=== PATIENT | male | born 1940 | race Caucasian/White ===

== ENCOUNTER 2017-06-28 11:58 | Outpatient (CLI) | payer MEDICARE ==
[2017-06-28 12:36] LABS: BASOPHILS # (AUTO) 0.1 10^3/uL (0.0-0.1); BASOPHILS % (AUTO) 0.9 %; EOSINOPHILS # (AUTO) 0.3 10^3/uL (0.0-0.7); EOSINOPHILS % (AUTO) 3.8 %; HGB - HEMOGLOBIN 15.2 g/dL (14.0-18.0); LYMPHOCYTES # (AUTO) 2.1 10^3/uL (1.5-3.5); LYMPHOCYTES % (AUTO) 26.2 %; MEAN CORPUSCULAR HEMOGLOBIN 31.8 pg (27.0-31.0); MEAN CORPUSCULAR HGB CONC 33.8 g/dL (32.0-36.0); MEAN CORPUSCULAR VOLUME 94.1 fL (80.0-94.0); MEAN PLATELET VOLUME 8.9 fL (7.4-11.4); MONOCYTES # (AUTO) 0.8 10^3/uL (0.0-1.0); MONOCYTES % (AUTO) 10.2 %; NEUTROPHILS # (AUTO) 4.7 10^3/uL (1.5-6.6); NEUTROPHILS % (AUTO) 58.9 %; PLT - PLATELET COUNT 183 10^3/uL (130-450); RED BLOOD COUNT 4.78 10^6/uL (4.70-6.10); RED CELL DISTRIBUTION WIDTH 13.4 % (12.0-15.0)
== END 2017-06-28 11:59 | disposition home or self-care (01) ==
LOC: LAB 11:58
PROVIDERS: ATTEND Ophthalmology
DX: G45.3 Amaurosis fugax (principal); I10 Essential (primary) hypertension
CPT/HCPCS: 36415; 85025; 85651; 86140

== ENCOUNTER 2017-07-05 14:13 | Outpatient (CLI) | payer MEDICARE, OTHER ==
[2017-07-05 14:53] LABS: BASOPHILS # (AUTO) 0.1 10^3/uL (0.0-0.1); BASOPHILS % (AUTO) 0.7 %; EOSINOPHILS # (AUTO) 0.2 10^3/uL (0.0-0.7); EOSINOPHILS % (AUTO) 1.9 %; HGB - HEMOGLOBIN 15.6 g/dL (14.0-18.0); LYMPHOCYTES # (AUTO) 2.3 10^3/uL (1.5-3.5); LYMPHOCYTES % (AUTO) 22.7 %; MEAN CORPUSCULAR HEMOGLOBIN 31.8 pg (27.0-31.0); MEAN CORPUSCULAR HGB CONC 34.1 g/dL (32.0-36.0); MEAN CORPUSCULAR VOLUME 93.2 fL (80.0-94.0); MONOCYTES # (AUTO) 0.9 10^3/uL (0.0-1.0); MONOCYTES % (AUTO) 9.2 %; NEUTROPHILS # (AUTO) 6.6 10^3/uL (1.5-6.6); NEUTROPHILS % (AUTO) 65.5 %; PLT - PLATELET COUNT 201 10^3/uL (130-450); RED BLOOD COUNT 4.93 10^6/uL (4.70-6.10); RED CELL DISTRIBUTION WIDTH 13.3 % (12.0-15.0); WHITE BLOOD COUNT 10.1 x10^3/uL (4.8-10.8)
[2017-07-05 15:10] LABS: CHOLESTEROL 161 mg/dL; HDL CHOLESTEROL 27 mg/dL; LDL CHOLESTEROL,CALCULATED 113 mg/dL; LDL/HDL RATIO 4.2 (<3.6); VLDL CHOLESTEROL 21 mg/dL
[2017-07-06 12:15] LABS: ALBUMIN 4.4 g/dL (3.2-5.5); ALBUMIN/GLOBULIN RATIO 1.3 (1.0-2.2); ALKALINE PHOSPHATASE 66 IU/L (42-121); ALT ALANINE AMINOTRANSFERASE 21 IU/L (10-60); AST ASPARTATE AMINOTRANSFERASE 27 IU/L (10-42); BUN - BLOOD UREA NITROGEN 15 mg/dL (6-20); CALCIUM 9.4 mg/dL (8.5-10.3); CARBON DIOXIDE - CO2 24 mmol/L (21-32); CHLORIDE 107 mmol/L (101-111); GFR - MDRD 72 (>89); GLUCOSE 96 mg/dL (70-100); SODIUM 137 mmol/L (135-145); TOTAL PROTEIN 7.8 g/dL (6.7-8.2)
[2017-07-06 13:16] LABS: HEPATITIS C ANTIBODY REACTIVE (NON-REACTIVE)
[2017-07-11 16:37] LABS: HCV RNA QNT 3.18 Log IU/mL (NOT DETECTED); HCV RNA QUANT RT PCR 1510 IU/mL (NOT DETECTED)
== END 2017-07-05 14:14 | disposition home or self-care (01) ==
LOC: LAB 14:13
PROVIDERS: ATTEND Internal Medicine
DX: G45.3 Amaurosis fugax (principal); R53.83 Other fatigue; M25.50 Pain in unspecified joint; B19.20 Unspecified viral hepatitis C without hepatic coma
CPT/HCPCS: 36415; 80053; 80061; 83721; 84443; 85025; 86803; 87522

== ENCOUNTER 2017-07-07 12:52 | Outpatient (CLI) | payer MEDICARE, OTHER ==
--- NOTE | 2017-07-07 15:35 | CT Report ---
EXAM: CT HEAD EXAM DATE: 07/07/2017 01:13 PM. CLINICAL HISTORY: TIA,HTN. COMPARISON: None. TECHNIQUE: Multiaxial CT images were obtained from the foramen magnum to the vertex. Reformats: Coron al. IV contrast: None. In accordance with CT protocol optimization, one or more of the following dose reduction techniques w ere utilized for this exam: automated exposure control, adjustment of mA and/or KV based on patient s ize, or use of iterative reconstructive technique. FINDINGS: Parenchyma: No intraparenchymal hemorrhage. No evidence of mass, midline shift, or CT findings of inf arction. Gu-white differentiation is distinct. Minimal periventricular hypoattenuation seen. 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 Extraaxial Spaces: Mild atrophy present. No subdural or epidural collections identified. Ventricles: Normal in size and position. Sinuses and Orbits: Mild mucosal thickening involving ethmoid sinuses to suggest chronic sinusitis. Bones: No evidence of fracture or calvarial defect. Other: None. IMPRESSION: 1. Mild senescent changes without CT evidence of acute intracranial disease. Old lacunar infarct invo lving posterior limb of the right internal capsule. 2. Mild chronic ethmoid sinusitis. [facility] Referring Provider Line: [phone] SITE ID: [id number]
== END 2017-07-07 12:53 | disposition home or self-care (01) ==
LOC: DI 12:52
PROVIDERS: ATTEND Internal Medicine
DX: G45.9 Transient cerebral ischemic attack, unspecified (principal); I10 Essential (primary) hypertension
CPT/HCPCS: 70450; 93306

== ENCOUNTER 2017-07-07 13:03 | Outpatient (CLI) | payer MEDICARE | END 2017-07-07 13:04 | disposition home or self-care (01) | LOC: DI 13:03 | PROVIDERS: ATTEND Ophthalmology | DX: Z53.9 Procedure and treatment not carried out, unspecified reason (principal); G45.3 Amaurosis fugax; H53.139 Sudden visual loss, unspecified eye ==

== ENCOUNTER 2017-08-06 14:18 | Outpatient (CLI) | payer MEDICARE ==
--- NOTE | 2017-08-07 11:37 | Ultrasound Report ---
CAROTID DUPLEX: 08/06/2017 CLINICAL INDICATION: TIA. TECHNIQUE: Real-time sonographic vascular imaging was performed by the hand spray operator through the carotid arteries utilizing both color-flow and Doppler spectral analysis. Multiple advertising account representative static images were saved for review. RIGHT Vessel PSV cm/sec EDV cm/sec ICA/CCA RSV Ratio Degree of Stenosis Plaque Estimate % RCCA Prox 72 -- -- RCCA Dist 66 1.0 -- RECA 93 -- -- RT BULB 103 7 1.5 trickle RAHEEM Prox 68 15 1.0 trickle RAHEEM Mid 48 7 0.72 trickle RAHEEM Dist 80 4 1.2 trickle RVA 86 -- -- RVA flow direction: Antegrade LEFT Vessel PSV cm/sec EDV cm/sec ICA/CCA RSV Ratio Degree of Stenosis Plaque Estimate % LCCA Prox 96 -- LCCA Dist 98 21 LECA 100 -- LFT BULB 125 16 turbulent LICA Prox 96 19 0.97 LICA Mid 84 23 0.85 LICA Dist 67 19 0.68 LVA 47 -- -- LVA flow direction: Antegrade Velocity criteria are extrapolated from diameter data as defined by the Society of Radiologists in Ultrasound Consensus Conference Radiology 2003; 229; 340-346. Degree of Stenosis % ICA PSV cm/sec ICA EDV cm/sec ICA/CCA PSV Ratio Plaque Estimate % Normal < 125 < 40 < 2.0 None <50 < 125 < 40 < 2.0 < 50 50-69 125-130 40-100 2.0-4.0 >/=50 >/=70 but less than near occlusion > 230 > 100 > 4.0 >/=50 Near occlusion High, low or undetectable Variable Variable Visible Total occlusion Undetectable Not applicable Not applicable No detectable lumen FINDINGS RIGHT: There is minimal flow in the right internal carotid artery, due to heterogeneous plaquing. LEFT: There is mild plaquing, without evidence of a focal hemodynamically significant carotid stenosis. The vertebral arteries demonstrate antegrade flow bilaterally. 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 CRITICAL RESULT: Results called to Dr. Thomas's office on 08/06/2017 at 3: 25 p.m. TD: 08/06/2017 15:36 yoan VIRK
== END 2017-08-06 14:19 | disposition home or self-care (01) ==
LOC: DI 14:18
PROVIDERS: ATTEND Internal Medicine
DX: I65.21 Occlusion and stenosis of right carotid artery (principal)
CPT/HCPCS: 93880

== ENCOUNTER 2018-07-05 08:07 | Outpatient (CLI) | payer MEDICARE ==
[2018-07-05 09:00] LABS: BASOPHILS # (AUTO) 0.1 10^3/uL (0.0-0.1); BASOPHILS % (AUTO) 0.7 %; EOSINOPHILS # (AUTO) 0.4 10^3/uL (0.0-0.7); EOSINOPHILS % (AUTO) 4.2 %; HGB - HEMOGLOBIN 14.9 g/dL (14.0-18.0); LYMPHOCYTES % (AUTO) 21.9 %; MEAN CORPUSCULAR HEMOGLOBIN 31.2 pg (27.0-31.0); MEAN CORPUSCULAR HGB CONC 32.9 g/dL (32.0-36.0); MEAN CORPUSCULAR VOLUME 94.9 fL (80.0-94.0); MEAN PLATELET VOLUME 9.2 fL (7.4-11.4); MONOCYTES # (AUTO) 0.9 10^3/uL (0.0-1.0); MONOCYTES % (AUTO) 9.5 %; NEUTROPHILS # (AUTO) 5.9 10^3/uL (1.5-6.6); NEUTROPHILS % (AUTO) 63.7 %; PLT - PLATELET COUNT 192 10^3/uL (130-450); RED BLOOD COUNT 4.77 10^6/uL (4.70-6.10); RED CELL DISTRIBUTION WIDTH 13.2 % (12.0-15.0); WHITE BLOOD COUNT 9.3 x10^3/uL (4.8-10.8)
[2018-07-05 09:18] LABS: ALBUMIN/GLOBULIN RATIO 1.1 (1.0-2.2); ALKALINE PHOSPHATASE 70 IU/L (42-121); ALT ALANINE AMINOTRANSFERASE 18 IU/L (10-60); AST ASPARTATE AMINOTRANSFERASE 26 IU/L (10-42); BILIRUBIN,TOTAL 1.4 mg/dL (0.2-1.0); BUN - BLOOD UREA NITROGEN 14 mg/dL (6-20); CARBON DIOXIDE - CO2 23 mmol/L (21-32); CHLORIDE 107 mmol/L (101-111); CHOL/HDL RATIO 5.9 (<5.0); CHOLESTEROL 170 mg/dL; GFR - MDRD 72 (>89); GLUCOSE 103 mg/dL (70-100); HDL CHOLESTEROL 29 mg/dL; LDL CHOLESTEROL,CALCULATED 126 mg/dL; LDL/HDL RATIO 4.3 (<3.6); SODIUM 139 mmol/L (135-145); TOTAL PROTEIN 7.5 g/dL (6.7-8.2); VLDL CHOLESTEROL 15 mg/dL
[2018-07-05 09:31] LABS: THYROID STIMULATING HORMONE 2.55 uIU/mL (0.34-5.60)
[2018-07-06 08:02] LABS: HEPATITIS C ANTIBODY REACTIVE (NON-REACTIVE)
[2018-07-10 16:06] LABS: HCV RNA QNT 3.97 Log IU/mL (NOT DETECTED); HCV RNA QUANT RT PCR 9280 IU/mL (NOT DETECTED)
== END 2018-07-05 08:08 | disposition home or self-care (01) ==
LOC: LAB 08:07
PROVIDERS: ATTEND Internal Medicine
DX: R51 Headache (principal); G45.3 Amaurosis fugax; R20.0 Anesthesia of skin; B18.2 Chronic viral hepatitis C; Z12.5 Encounter for screening for malignant neoplasm of prostate; Z13.6 Encounter for screening for cardiovascular disorders
CPT/HCPCS: 36415; 80061; 81599; 82607; 86803; 87521; G0103; 80053; 83721; 84153; 84443; 85025

== ENCOUNTER 2018-07-26 15:02 | Outpatient (CLI) | payer MEDICARE | END 2018-07-26 15:03 | disposition home or self-care (01) | LOC: LAB 15:02 | PROVIDERS: ATTEND Optometrist Corneal and Contact Management | DX: H47.011 Ischemic optic neuropathy, right eye (principal) | CPT/HCPCS: 36415; 85651; 86140 ==

== ENCOUNTER 2018-09-25 12:37 | Outpatient (CLI) | payer MEDICARE ==
--- NOTE | 2018-09-27 05:09 | Ultrasound Report ---
Reason: CHRONIC HEP C Procedure Date: 09/25/2018 Accession Number: [id number] / [id number] Procedure: US - Abdomen Limited CPT Code: FULL RESULT: EXAM: ABDOMEN LIMITED EXAM DATE: 09/25/2018 01:45 PM INDICATION: CHRONIC HEP C. COMPARISONS: None. FINDINGS: Liver: Liver parenchyma is heterogeneous and mild to moderately hyperechoic. No discrete liver masses or intrahepatic bile duct dilation. However, evaluation for masses is limited secondary to the echogenicity. Right liver measures 11.7 cm. Main portal vein flow: Hepatopetal. Gallbladder: Normal. No stones, wall thickening, or sonographic Edmond's sign. Biliary System: CBD measures 3.8 mm. No intrahepatic or extrahepatic ductal dilatation. Pancreas: Normal. Right kidney: 10.9 cm. No hydronephrosis. Abdominal aorta and IVC: Normal. Other: None. IMPRESSION: 1. Mild to moderately heterogeneous hyperechoic liver parenchyma. No mass or intrahepatic bile duct dilation. Findings are nonspecific but probably secondary to diffuse parenchymal process such as hepatitis and/or fatty infiltration. No evidence of cirrhosis. 2. Normal gallbladder and common bile duct. [facility]
== END 2018-09-25 12:38 | disposition home or self-care (01) ==
LOC: DI 12:37
PROVIDERS: ATTEND Internal Medicine Gastroenterology
DX: B18.2 Chronic viral hepatitis C (principal)
CPT/HCPCS: 76705

== ENCOUNTER 2021-09-13 08:00 | Outpatient (CLI) | payer MEDICARE ==
[2021-09-13 16:20] LABS: BASOPHILS % (AUTO) 0.4 %; EOSINOPHILS # (AUTO) 0.3 10^3/uL (0.0-0.7); HCT - HEMATOCRIT 48.5 % (42.0-52.0); HGB - HEMOGLOBIN 16.3 g/dL (14.0-18.0); LYMPHOCYTES # (AUTO) 1.6 10^3/uL (1.5-3.5); LYMPHOCYTES % (AUTO) 18.1 %; MEAN CORPUSCULAR HEMOGLOBIN 31.3 pg (27.0-31.0); MEAN CORPUSCULAR HGB CONC 33.6 g/dL (32.0-36.0); MEAN CORPUSCULAR VOLUME 93.1 fL (80.0-94.0); MEAN PLATELET VOLUME 11.3 fL (7.4-11.4); MONOCYTES # (AUTO) 1.1 10^3/uL (0.0-1.0); MONOCYTES % (AUTO) 12.7 %; NEUTROPHILS # (AUTO) 5.8 10^3/uL (1.5-6.6); NEUTROPHILS % (AUTO) 65.1 %; PLT - PLATELET COUNT 190 10^3/uL (130-450); RED BLOOD COUNT 5.21 10^6/uL (4.70-6.10); RED CELL DISTRIBUTION WIDTH 13.2 % (12.0-15.0); WHITE BLOOD COUNT 8.9 x10^3/uL (4.8-10.8)
[2021-09-13 16:27] LABS: ALBUMIN 4.2 g/dL (3.2-5.5); ALBUMIN/GLOBULIN RATIO 1.2 (1.0-2.2); ALKALINE PHOSPHATASE 75 IU/L (42-121); ALT ALANINE AMINOTRANSFERASE 16 IU/L (10-60); AST ASPARTATE AMINOTRANSFERASE 23 IU/L (10-42); BILIRUBIN,TOTAL 0.7 mg/dL (0.2-1.0); BUN - BLOOD UREA NITROGEN 14 mg/dL (6-20); CALCIUM 9.7 mg/dL (8.5-10.3); CARBON DIOXIDE - CO2 24 mmol/L (21-32); CHLORIDE 109 mmol/L (101-111); CHOL/HDL RATIO 4.9 (<5.0); CHOLESTEROL 161 mg/dL; GFR - MDRD 72 (>89); GLUCOSE 109 mg/dL (70-100); HDL CHOLESTEROL 33 mg/dL; LDL CHOLESTEROL,CALCULATED 115 mg/dL; LDL/HDL RATIO 3.5 (<3.6); POTASSIUM 4.2 mmol/L (3.5-5.0); SODIUM 140 mmol/L (135-145); TOTAL PROTEIN 7.7 g/dL (6.7-8.2); TRIGLYCERIDES 66 mg/dL; VLDL CHOLESTEROL 13 mg/dL
[2021-09-13 16:29] LABS: PSA TOTAL 3.327 ng/mL (0.000-2.000)
[2021-09-13 17:21] LABS: PSA FREE 0.626 ng/mL (0.16-2.81)
[2021-09-13 21:12] LABS: ESTIMATED AVERAGE GLUCOSE 108 mg/dL (70-100); HEMOGLOBIN A1c% 5.4 % (4.27-6.07)
== END 2021-09-13 23:59 | disposition home or self-care (01) ==
LOC: LAB.R 08:00
PROVIDERS: ATTEND Internal Medicine
DX: Z00.00 Encounter for general adult medical examination without abnormal findings (principal); G45.3 Amaurosis fugax; B18.2 Chronic viral hepatitis C; R03.0 Elevated blood-pressure reading, without diagnosis of hypertension; R97.20 Elevated prostate specific antigen [PSA]; R73.01 Impaired fasting glucose; R35.89 Other polyuria
CPT/HCPCS: 80053; 80061; 83036; 83721; 84153; 84154; 84443; 85025